=== PATIENT | female | born 1945 | race Caucasian/White ===

== ENCOUNTER 2016-12-19 06:44 | Day surgery (SDC) | payer MEDICARE, BC ==
[2016-12-19] MEDS ORDERED: Lactated Ringers 1,000 ML IV SCH (07:00)
[2016-12-19] MEDS ORDERED: fentaNYL 100 MCG/2 ML SDV ONE (08:08)
[2016-12-19] MEDS ORDERED: Propofol 200 MG/20 ML SDV ONE (08:08)
--- NOTE | 2016-12-19 12:09 | OR ---
PREOPERATIVE DIAGNOSIS: History of polyps. POSTOPERATIVE DIAGNOSIS: Essentially normal colonoscopic exam. PROCEDURE PROPOSED/PROCEDURE DONE: Total flexible colonoscopy. INDICATION: This is a 71-year-old female who comes in for colonic surveillance due to history of polyps. Her last examination was 5 years ago. She denies any symptomatology. TECHNIQUE: The patient was brought to the endoscopy suite and placed in left lateral decubitus position. She was sedated with propofol per [employer]. The flexible video colonoscope was then passed transanally and under visualization advanced to the cecum. Examination revealed a normal ascending, transverse, descending, sigmoid, and rectal colon. There was no evidence of any diverticulosis or polyps or colitis or any other abnormalities. The scope was then withdrawn. She tolerated the procedure well. FINAL IMPRESSION: 1. Essentially normal colonoscopic exam. 2. History of polyps. PLAN: I feel that she should have one more examination in her lifetime in 5 years from now. SCM: 12/19/2016 08:29:24 MODL: 12/19/2016 11:54:56 /[id number]
== END 2016-12-19 09:50 | disposition home or self-care (01) ==
LOC: VM.SDS 06:44
PROVIDERS: ATTEND Surgery
DX: Z12.11 Encounter for screening for malignant neoplasm of colon (principal); Z86.010 Personal history of colon polyps
CPT/HCPCS: G0105; J2704; J3010; J7120; 00810